=== PATIENT | male | born 1985 | race Two or more races ===

== ENCOUNTER 2019-10-27 22:13 | Emergency (ER) | payer SELFPAY ==
[~2019-10-27] VITALS: Ht 175.3 cm; Wt 82.0 kg
[~2019-10-27 22:13] MED LIST: CARB200T PO; PHEN100C4 PO
[2019-10-27] MEDS ORDERED: CARBAMAZEPINE 200MG TABLET PO ONE (23:30)
[2019-10-27 23:54] VITALS: BP 140/64
== END 2019-10-28 00:19 | disposition home or self-care (01) ==
LOC: ER 22:13
DX: R56.9 Unspecified convulsions (principal); Z76.0 Encounter for issue of repeat prescription; F17.200 Nicotine dependence, unspecified, uncomplicated
CPT/HCPCS: 82962; 99283